=== PATIENT | male | born 1950 | race Caucasian/White ===

== ENCOUNTER 2024-08-27 08:00 | Day surgery (SDC) | payer OTHER, SELFPAY ==
[2024-08-26 12:10] VITALS: BMI 30.4
[2024-08-27] VITALS (13 sets, daily range): BP systolic 119–212; BP diastolic 83–110; PULSE 66–88; RESP 14–20; TEMP 36.1–37.1; O2SAT 92–98; BMI 28.3
[2024-08-27] MEDS: hydrALAZINE INJ 20 MG/ML VIAL 10 MG IV ×2 (10:03→10:13)
[2024-08-27] MEDS: SODIUM CHLORIDE 0.9% 500 ML 500 ML 20 ML IV (10:17)
[2024-08-27] MEDS: fentaNYL CIT INJ 50 mCg/ML AMP 2ML (ASD USE ONLY) IV (10:30)
[2024-08-27] MEDS: DiphenhydrAMINE INJ 50 MG/ML VIAL 25 MG IV (10:30)
[2024-08-27] MEDS: MIDAZOLAM INJ 1 MG/ML VIAL 2 ML (ASD USE ONLY) 2 MG IV (10:30)
--- NOTE | 2024-08-27 10:50 | SUR.PHASEII ---
1050: received pt from OR via [facility]. received report from ISABEL Rodriguez. pt awake but drifts back to sleep. no s/s of pain or discomfort. no s/s of resp. distress or discomfort.
--- NOTE | 2024-08-27 11:05 | SUR.PHASEII ---
1105: able to drink soda without any difficulty.
--- NOTE | 2024-08-27 11:21 | SUR.PHASEII ---
1121: pt ambulate to bathroom without any difficulty. he was able to pass gas.
--- NOTE | 2024-08-27 11:43 | SUR.PHASEII ---
1143: pt discharge to home via wheelchair. pt alert and oriented to name, place and time. no s/s of resp. distress or discomfort. per patient after passing out gas, abdominal discomfort was relieve. discharge instructions given to daughter and pt, verbalizes understanding. all belongings brought given back to patient.
== END 2024-08-27 11:43 | disposition home or self-care (01) ==
PROVIDERS: PCP Family Medicine; Referring Provider Specialist; Visit Provider Specialist
PROC: 0DBE8ZX Excision of Large Intestine, Via Natural or Artificial Opening Endoscopic, Diagnostic (ICD-10-PCS; CPT 45380; principal; 2024-08-27 09:30)
DX: Z12.11 Encounter for screening for malignant neoplasm of colon (principal); K64.9 Unspecified hemorrhoids; K57.30 Diverticulosis of large intestine without perforation or abscess without bleeding
CPT/HCPCS: G0121; J0360; J1200; J2250; J3010; J7040

== ENCOUNTER → 2024-10-11 | Outpatient (CLI) | payer OTHER, SELFPAY ==
[2024-10-11 10:30] LABS: Basophils % (Auto) 1 % (0-2.5); Eosinophils # (Auto) 0.1 Thou/mm3 (0.0-0.5); Eosinophils % (Auto) 2 % (0-10); Hematocrit 43.1 % (41.0-53.0); Hemoglobin 14.1 g/dL (13.5-16.0); Immature Granulocytes % (Auto) 0 % (0-0); Immature Granulocytes Auto 0.01 Thou/mm3 (0.00-0.00); Lymphocytes # (Auto) 1.2 Thou/mm3 (1.0-4.8); Lymphocytes % (Auto) 21 % (10-50); Mean Corpuscular HGB Conc 32.7 g/dl (31.0-37.0); Mean Corpuscular Hemoglobin 26.8 pg (25.0-35.0); Mean Corpuscular Volume 82 fL (80-100); Monocytes # (Auto) 0.4 Thou/mm3 (0.0-0.8); Monocytes % (Auto) 7 % (0-12); Neutrophils # (Auto) 4.1 Thou/mm3 (1.8-7.7); Neutrophils % (Auto) 69 % (37-80); Nucleated Red Blood Cell % 0 /100 WBC (0); Platelet Count 184 Thou/mm3 (140-440); Red Blood Count 5.27 Miln/mm3 (4.50-5.90); White Blood Count 5.9 Thou/mm3 (3.8-10.6)
[2024-10-11 11:05] LABS: Alanine Aminotransferase 11 U/L (10-49); Albumin, Serum 4.2 gm/dL (3.4-4.8); Alkaline Phosphatase 83 U/L (46-116); Anion Gap 10 (7-16); Aspartate Amino Transferase 15 U/L (0-34); BUN/Creatinine Ratio 19 Ratio (12-20); Bilirubin,Direct 0.3 mg/dL (0.0-0.3); Bilirubin,Total 1.2 mg/dL (0.3-1.2); Blood Urea Nitrogen 13 mg/dL (9-23); Calcium 8.8 mg/dL (8.3-10.6); Carbon Dioxide 29.7 mMol/L (20.0-31.0); Cardiac Risk Estimate 2.4 RATIO (4.0-6.7); Chloride 101 mMol/L (98-107); Cholesterol 182 mg/dL (132-200); Creatinine (Component) 0.7 mg/dL (0.6-1.3); Glucose 100 mg/dL (74-106); HDL Cholesterol 76 mg/dL (40-60); LDL Cholesterol,Calculated 90 mg/dL (0-130); Osmolality,Calculated 281 (275-295); Potassium 3.6 mMol/L (3.4-5.1); Sodium 141 mMol/L (136-145); Triglycerides 80 mg/dL (30-150); eGFR > 60 See Note
[2024-10-11 11:09] LABS: Collection Type, Urine Clean Catch; Squamous Epithelial Cell,Urine 0 /hpf (0-5)
[2024-10-11 11:51] LABS: Bilirubin,Urine Negative (Negative); Blood,Urine Negative (Negative); Clarity,Urine Clear (Clear/Hazy); Color,Urine Lt-Yellow (Lt Yel-Yel); Culture Indicated,Urine Not Indicated; Glucose, Urine Negative (Negative); Ketones,Urine Trace (Negative); Leukocyte Esterase,Urine Negative (Negative); Nitrite,Urine Negative (Negative); Protein,Urine Negative (Neg - Trace); RBC,Urine 1 /hpf (0-3); Specific Gravity,Urine 1.013 (1.001-1.035); Urobilinogen,Urine Negative mg/dL (0.0-1.0); WBC,Urine < 1 /hpf (0-5)
[2024-10-11 12:24] LABS: Creatinine MALB Rnd Ur 58 mg/dL (30-125); Microalbumin Creat Ratio 88 mg/gCrea (<30); Microalbumin, Random Urine 51 mg/L (0-300)
== END | disposition home or self-care (01) ==
LOC: COPL 09:46
PROVIDERS: PCP Family Medicine; Referring Provider Family Medicine; Visit Provider Family Medicine
DX: I10 Essential (primary) hypertension (principal)
CPT/HCPCS: 36415; 80048; 80061; 80076; 81001; 82043; 82570; 85025